=== PATIENT | male | born 1985 | race Hispanic/Latino ===

== ENCOUNTER 2017-12-30 17:35 | Emergency (ER) | payer SELFPAY ==
[2017-12-30] MEDS ORDERED: Naproxen 500 MG TAB ONE (19:28)
--- NOTE | 2017-12-30 19:58 | RAD ---
RIGHT FOOT THREE VIEWS: History: Right foot pain. FINDINGS: Lisfranc joint alignment is anatomic. Plantar arch maintained. No acute fracture, dislocation, or agg ressive osseous erosions. Mild hallux valgus. IMPRESSION: No acute osseous abnormalities are demonstrated. POS: ADAIR
== END 2017-12-30 20:38 | disposition home or self-care (01) ==
LOC: SCSER 17:35
DX: M79.671 Pain in right foot (principal); R20.2 Paresthesia of skin
CPT/HCPCS: 36416